=== PATIENT | female | born 1970 | race Caucasian/White ===

== ENCOUNTER 2018-05-18 16:19 | Emergency (ER) | payer SELFPAY ==
--- NOTE | 2018-05-18 18:17 | EDM.PDOC ---
ED HPI GENERAL MEDICAL PROBLEM - General Chief Complaint: Cardiovascular Problem Stated Complaint: A FIB, CHEST PAIN Time Seen by Provider: 05/18/18 17:11 Source of Information: Reports: Patient History Limitations: Reports: No Limitations - History of Present Illness INITIAL COMMENTS - FREE TEXT/NARRATIVE: This lady comes in because of some chest pain. She has a history of atrial fibrillation and has a pacemaker installed. She had some episodes of bradycardia in the past as well as the A. fib. Today she started having some vague chest pain at about 1:30 PM. Her heart felt irregular and almost painful it was just sort of a vague discomfort she said the pain was kind of in the left side of the chest. Usually this stops whenever she does some breathing maneuvers but today it lasted about 20 minutes. She still feels like not quite enough air. But not actually short of breath. Her only medication is aspirin. She denies any caffeine or any type of stimulant drugs such as cold meds. Left Chest Pain Score (Numeric/FACES): 4 - Related Data Allergies Allergy/AdvReac Type Severity Reaction Status Date / Time No Known Allergies Allergy Verified 05/18/18 16:41 Home Meds: Home Meds NK [No Known Home Meds] 05/18/18 [History] Past Medical History Cardiovascular History: Reports: Afib, Pacemaker, Other (See Below) Other Cardiovascular History: tachy monse Genitourinary History: Reports: Renal Calculus Musculoskeletal History: Reports: Fracture Neurological History: Reports: Migraines Psychiatric History: Reports: ADD, Bipolar, PTSD - Past Surgical History Cardiovascular Surgical History: Reports: Cardiac Ablation Female Surgical History: Reports: Hysterectomy Social & Family History - Tobacco Use Smoking Status *Q: Former Smoker Used Tobacco, but Quit: Yes Month/Year Tobacco Last Used: 3.5 years - Caffeine Use Caffeine Use: Reports: Coffee - Recreational Drug Use Recreational Drug Use: No ED ROS GENERAL - Review of Systems Review Of Systems: See Below Constitutional: Reports: No Symptoms HEENT: Reports: No Symptoms Respiratory: Reports: Shortness of Breath (Just vague sensation) Cardiovascular: Reports: Other (Vague chest discomfort associated with palpitations) Endocrine: Reports: No Symptoms GI/Abdominal: Reports: No Symptoms : Reports: No Symptoms ED EXAM, GENERAL - Physical Exam Exam: See Below Exam Limited By: No Limitations General Appearance: Alert, WD/WN, No Apparent Distress Eye Exam: Bilateral Eye: Normal Inspection Throat/Mouth: Normal Inspection Neck: Normal Inspection Respiratory/Chest: Lungs Clear Cardiovascular: Regular Rate, Rhythm, No Murmur GI/Abdominal: Non-Tender Back Exam: Normal Inspection Extremities: Normal Inspection Neurological: Alert, Normal Cognition Psychiatric: Normal Affect Skin Exam: Warm, Dry Course - Vital Signs Last Recorded V/S: Last Vital Signs Temp 36.6 C 05/18/18 16:46 Pulse 69 05/18/18 16:46 Resp 17 05/18/18 16:46 BP 159/91 H 05/18/18 16:46 Pulse Ox 97 05/18/18 16:46 - Orders/Labs/Meds Orders: Active Orders 24 hr Category Date Time Status EKG Documentation Completion [RC] ASDIRECTED Care 05/18/18 17:06 Active EKG 12 Lead [EK] Urgent Ther 05/18/18 17:05 Ordered Labs: Laboratory Tests 05/18/18 05/18/18 05/18/18 Range/Units 17:05 17:05 17:05 WBC 7.3 (4.5-11.0) K/uL RBC 4.68 (3.30-5.50) M/uL Hgb 13.4 (12.0-15.0) g/dL Hct 42.7 (36.0-48.0) % MCV 91 (80-98) fL MCH 29 (27-31) pg MCHC 31 L (32-36) % Plt Count 213 (150-400) K/uL Neut % (Auto) 68 H (36-66) % Lymph % (Auto) 22 L (24-44) % [place] % (Auto) 8 H (2-6) % Eos % (Auto) 2 (2-4) % Baso % (Auto) 1 (0-1) % Sodium 144 (140-148) mmol/L Potassium 3.4 L (3.6-5.2) mmol/L Chloride 106 (100-108) mmol/L Carbon Dioxide 25 (21-32) mmol/L Anion Gap 16.4 H (5.0-14.0) mmol/L BUN 16 (7-18) mg/dL Creatinine 0.7 (0.6-1.0) mg/dL Est Cr Clr Drug Dosing 99.15 mL/min Estimated GFR (MDRD) > 60 (>60) Glucose 121 H (74-106) mg/dL Calcium 9.8 (8.5-10.1) mg/dL Troponin I < 0.017 (0.000-0.056) ng/mL Free T4 0.97 (0.76-1.46) ng/dL TSH, Ultra Sensitive 0.805 (0.358-3.740) uIU/mL - Re-Assessments/Exams Free Text/Narrative Re-Assessment/Exam: 05/18/18 18:20 EKG shows normal sinus rhythm there appears to be a right bundle branch block. No pacemaker activity was noted. She has remained symptom free throughout her course in the ER. Departure - Departure Time of Disposition: 18:15 Disposition: Home, Self-Care 01 Condition: Fair Clinical Impression: Chest pain, Atrial fibrillation, currently in sinus rhythm Referrals: Zoie Parikh MD [Primary Care Provider] - Forms: ED Department Discharge Additional Instructions: Continue all your usual medications. If you continue to have episodes of atrial fibrillation talk to your doctor because you might benefit from being on a medication that prevents that. - My Orders Last 24 Hours: My Active Orders 05/18/18 17:05 EKG 12 Lead [EK] Urgent 05/18/18 17:06 EKG Documentation Completion [RC] ASDIRECTED - Assessment/Plan Last 24 Hours: My Active Orders 05/18/18 17:05 EKG 12 Lead [EK] Urgent 05/18/18 17:06 EKG Documentation Completion [RC] ASDIRECTED
== END 2018-05-18 18:33 | disposition home or self-care (01) ==
LOC: JP.ED 16:19
DX: I48.91 Unspecified atrial fibrillation (principal); Z87.891 Personal history of nicotine dependence; Z95.0 Presence of cardiac pacemaker
CPT/HCPCS: 36415; 80048; 84439; 84443; 84484; 85025; 93005; 93010; 99285-25